=== PATIENT | male | born 1970 | race Caucasian/White ===

== ENCOUNTER 2018-08-10 01:03 | Observation (INO) | payer SELFPAY ==
[2018-08-10] MEDS ORDERED: Sodium Chloride 0.9% 1,000 ML IV STA ×2 (02:35→05:03)
[2018-08-10 02:41] LABS: HEMOGLOBIN 15.4 g/dL (12.0-18.0); MEAN CELL VOLUME 89.3 fl (80.0-94.0); MEAN CORPUSCULAR HEMOGLOBIN 30.9 pg (27.0-31.0); MEAN CORPUSCULAR HGB CONC 34.7 g/dL (33.0-37.0); RBC 4.98 Mil/uL (4.40-5.90); RED CELL DISTRIBUTION WIDTH 12.8 % (11.5-14.5); WHITE BLOOD COUNT 8.6 K/uL (4.8-10.8)
[2018-08-10 02:48] LABS: BLOOD UREA NITROGEN 17 mg/dl (9-20); CALCIUM 9.3 mg/dL (8.4-10.2); GFR NON-AFRICAN AMERICAN > 60
--- NOTE | 2018-08-10 03:29 | ED PDOC ---
Syncope/Near Syncope/Dizziness Time Seen by Provider: 08/10/18 01:33 Chief Complaint (Nursing): Dizziness/Lightheaded Chief Complaint (Provider): Dizziness/Lightheaded History Per: Patient History/Exam Limitations: no limitations Onset/Duration Of Symptoms: Days (x1) Additional Complaint(s): 13/ Patient is a 48 y/o male visiting from [facility] with no past medical history who presents to the ED complaining of dizziness. Patient states that since yesterday he has been feeling dizzy when he changes from a lying down to standing position. He states he feels as though the room is spinning and feels like he is going to fall down. He also states he feels nauseous. He denies any headache, vision changes, chest pain, shortness of breath, abdominal pain. Patient states that when he is lying still he feels better. Past Medical History Reviewed: Historical Data, Nursing Documentation, Vital Signs Vital Signs: Last Vital Signs Temp 98.0 F 08/10/18 01:15 Pulse 99 H 08/10/18 01:15 Resp 16 08/10/18 01:15 BP 171/85 H 08/10/18 01:15 Pulse Ox 97 08/10/18 01:15 - Medical History PMH: No Chronic Diseases - Surgical History Surgical History: No Surg Hx - Family History Family History: States: Unknown Family Hx - Home Medications Home Medications: Ambulatory Orders Medication Instructions Recorded Meclizine [Meclizine*] 25 mg PO Q6 #30 tab 08/10/18 - Allergies Allergies/Adverse Reactions: Allergies Allergy/AdvReac Type Severity Reaction Status Date / Time No Known Allergies Allergy Verified 08/10/18 01:23 Review of Systems ROS Statement: Except As Marked, All Systems Reviewed And Found Negative Eyes: Negative for: Vision Change Cardiovascular: Negative for: Chest Pain Respiratory: Negative for: Shortness of Breath Gastrointestinal: Positive for: Nausea. Negative for: Abdominal Pain Neurological: Positive for: Dizziness Physical Exam - Reviewed Nursing Documentation Reviewed: Yes Vital Signs Reviewed: Yes - Physical Exam Appears: Positive for: No Acute Distress (morbidly obese) Head Exam: Positive for: ATRAUMATIC, NORMAL INSPECTION, NORMOCEPHALIC Skin: Positive for: Normal Color, Warm, DRY Eye Exam: Positive for: EOMI, Normal appearance, PERRL ENT: Positive for: Normal ENT Inspection Neck: Positive for: Normal, Painless ROM Cardiovascular/Chest: Positive for: Regular Rate, Rhythm. Negative for: Murmur Respiratory: Positive for: Normal Breath Sounds. Negative for: Respiratory Distress Gastrointestinal/Abdominal: Positive for: Normal Exam, Soft. Negative for: Tenderness Back: Positive for: Normal Inspection Extremity: Positive for: Normal ROM. 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 Negative for: Motor/Sensory Deficits - Laboratory Results Result Diagrams: 08/10/18 01:55 08/10/18 01:55 - ECG O2 Sat by Pulse Oximetry: 97 (RA) Pulse Ox Interpretation: Normal Medical Decision Making Medical Decision Making: Time: 01:51 A/P: 48 y/o with dizziness likely indicativ of peripheral vertigo. Will rule out other etiology such as electrolyte or cardiac * CT Head * labs * Meclizine 50 mg [address] up in [address] Zofran 4mg IV ordered and more meclizine 400 CT SCAN OF THE BRAIN WITHOUT IV CONTRAST CLINICAL INDICATION: Dizziness. TECHNIQUE: Axial and reformatted sagittal and coronal images of the brain obtained without IV contrast administration. Normal size of the ventricles and extra-axial spaces for the patient's age. Normal white matter tracts of the supratentorial brain. Normal basal ganglia and thalami. Normal brainstem. Normal cerebellum. There is no demonstrated extra-axial, intraparenchymal, or intraventricular hemorrhage. There are no findings of an acute ischemic infarction. Normal calvarium. There is no demonstrated fracture. Normal soft tissue structures. Mild chronic mucosal inflammatory changes of the sphenoid sinuses and ethmoid air cells. Normal remaining visualized paranasal sinuses. IMPRESSION: Normal unenhanced CT scan of the brain. Chronic sinusitis. Patient still states he's just as dizzy as he was before despite medications Will admit to hospital for MRI and neurology consult Dr. Dwight sauceda -- Scribe Attestation: Documented by Nikko Wade, acting as a scribe for Ramy Hernandez MD. Provider Scribe Attestation: All medical record entries made by the Scribe were at my direction and personally dictated by me. I have reviewed the chart and agree that the record accurately reflects my personal performance of the history, physical exam, medical decision making, and the department course for this patient. I have also personally directed, reviewed, and agree with the discharge instructions and disposition. Disposition - Clinical Impression Clinical Impression: Vertigo, Dizziness - Disposition Disposition Time: 05:00 Condition: IMPROVED
--- NOTE | 2018-08-10 06:09 | CP.PCM.HP ---
<Wesley Pires - Last Filed: 08/10/18 06:34> History of Present Illness - History of Present Illness History of Present Illness: A 48 yo male no significant PMH present to ED due to dizziness that started yesterday morning. Patient report it started spontaneously after he woke up. Patient report the symptoms are reproducible every time he move his head B/L or change from lying to sitting position. He state he feel the room is spinning, and start seeing blurry, he denies sounds, or hearing change. Patient state this is the first time that have happened, and since yesterday it have been persistent, he did not have nausea or vomit, except when he got to the ER, otherwise his only symptom was the dizziness. Patient denies having recent fever, chills, recent infection, LOC or trauma. Patient report this is first time that have happened to him Patient came to [facility] for a vacation from [facility], and have been here for past 2 weeks. Patient denies any headache, chest pain, shortness of breath, abdominal pain. Patient states that when he is lying still he feels better. Allergy None Medication: anti acid PMH none PSH none Social: chronic smoker, denies drink or drug use ED course Vitals: Temp 98, Pulse 99, RR 16, Bp 171/85 ox 97 PE: WNL no neurological deficit CBC and CMP WNL except for glucose of 164 CT Scan Normal EKG no St or t changes Patient was placed on IV fluid and Meclizine Due patient unresolved dizziness, he will be admitted under observation to telemetry floor for further evaluation. Present on Admission - Present on Admission Any Indicators Present on Admission: No Review of Systems - Review of Systems Systems not reviewed;Unavailable: Acuity of Condition - Constitutional Constitutional: As Per HPI. absent: Chills, Fever, Frequent Falls - EENT Eyes: absent: Blurred Vision Ears: Dizziness. absent: Decreased Hearing, Ear Discharge, Ear Pain, Tinnitus - Cardiovascular Cardiovascular: absent: Chest Pain, Chest Pain at Rest, Diaphoresis, Dyspnea, Palpitations - Respiratory Respiratory: absent: Cough, Dyspnea, Dyspnea on Exertion - Gastrointestinal Gastrointestinal: absent: Abdominal Pain, Change in Bowel Habits, Change in Stool Character - Musculoskeletal Musculoskeletal: absent: Back Pain - Neurological Neurological: Dizziness, Vertigo. absent: Abnormal Gait, Numbness, Focal [place], Headaches, Tingling, Weakness Past Patient History - Past Social History Smoking Status: Never Smoked - PSYCHIATRIC Hx Substance Use: No - SURGICAL HISTORY Hx Surgeries: No - ANESTHESIA Hx Anesthesia: No Meds Home Medications: Home Medication List Medication Instructions Recorded Confirmed Type Meclizine [Meclizine*] 25 mg PO Q6 #30 tab 08/10/18 Rx Allergies/Adverse Reactions: Allergies Allergy/AdvReac Type Severity Reaction Status Date / Time No Known Allergies Allergy Verified 08/10/18 01:23 Physical Exam - Constitutional Appears: Well, Non-toxic, No Acute Distress - Head Exam Head Exam: ATRAUMATIC, NORMAL INSPECTION, NORMOCEPHALIC - Eye Exam Eye Exam: EOMI, Normal appearance, PERRL Pupil Exam: NORMAL ACCOMODATION, PERRL Additional comments: Positive horizontal Nystagmus B/L - ENT Exam ENT Exam: Mucous Membranes Moist, Normal Exam - Neck Exam Neck exam: Positive for: Normal Inspection - Respiratory Exam Respiratory Exam: Rales, NORMAL BREATHING PATTERN - Cardiovascular Exam Cardiovascular Exam: REGULAR RHYTHM, +S1, +S2 - GI/Abdominal Exam GI & Abdominal Exam: Normal Bowel Sounds, Soft. absent: Pulsatile Mass - Extremities Exam Extremities exam: Positive for: normal inspection - Back Exam Back exam: NORMAL INSPECTION. absent: CVA tenderness (L), CVA tenderness (R) - Neurological Exam Neurological exam: Alert, CN II-XII Intact, Normal Gait, Oriented x3 Additional comments: No weakness noted on all extremities - Psychiatric Exam Psychiatric exam: Normal Affect, Normal Mood - Skin Skin Exam: Dry, Intact, Normal Color, Warm - Additional Findings Additional findings: Orthostatic hypotension negative Results - Vital Signs Recent Vital Signs: Last Vital Signs Temp 98.3 F 08/10/18 04:01 Pulse 89 08/10/18 04:01 Resp 18 08/10/18 04:01 BP 146/73 08/10/18 04:01 Pulse Ox 97 08/10/18 05:52 - Labs Result Diagrams: 08/10/18 01:55 08/10/18 01:55 Labs: Laboratory Results - last 24 hr 08/10/18 08/10/18 01:55 01:55 WBC 8.6 RBC 4.98 Hgb 15.4 Hct 44.4 MCV 89.3 MCH 30.9 MCHC 34.7 RDW 12.8 Plt Count 167 Sodium 141 Potassium 4.2 Chloride 107 Carbon Dioxide 24 Anion Gap 14 BUN 17 Creatinine 1.0 Est GFR ( Amer) > 60 Est GFR (Non-Af Amer) > 60 Random Glucose 164 H Calcium 9.3 Assessment & Plan - Assessment and Plan (Free Text) Assessment: 48 yo male with no pmh presented to ED due to dizziness, will be admitted under observation to telemetry floor for further evaluation. Patient still complain of dizziness Vitals WNL except for BP 171/85 Ct head normal EKG No St changes CBC CMB WNL except for glucose 165 PE: WNL no neurology deficit Plan Continue Meclizine 25 Q6h PRN F/U MRI F/U Neuro consult F/U Troponin and LFT F/U Lipid panel and Hemoglobin A1C Neuro check Q4h DVT Prophylaxis SCD for now, Hold of Lovenox <Adi Quintanilla - Last Filed: 08/10/18 09:35> Results - Vital Signs Recent Vital Signs: Last Vital Signs Temp 98.1 F 08/10/18 08:04 Pulse 90 08/10/18 08:04 Resp 20 08/10/18 08:04 BP 158/96 H 08/10/18 08:04 Pulse Ox 96 08/10/18 08:04 - Labs Result Diagrams: 08/10/18 01:55 08/10/18 01:55 Labs: Laboratory Results - last 24 hr 08/10/18 08/10/18 08/10/18 01:55 01:55 05:44 WBC 8.6 RBC 4.98 Hgb 15.4 Hct 44.4 MCV 89.3 MCH 30.9 MCHC 34.7 RDW 12.8 Plt Count 167 Sodium 141 Potassium 4.2 Chloride 107 Carbon Dioxide 24 Anion Gap 14 BUN 17 Creatinine 1.0 Est GFR ( Amer) > 60 Est GFR (Non-Af Amer) > 60 Random Glucose 164 H Calcium 9.3 Total Bilirubin Direct Bilirubin AST ALT Alkaline Phosphatase Troponin I < 0.0120 Total Protein Albumin Globulin Albumin/Globulin Ratio Triglycerides Cholesterol LDL Cholesterol Direct HDL Cholesterol 08/10/18 06:10 WBC RBC Hgb Hct MCV MCH MCHC RDW Plt Count Sodium Potassium Chloride Carbon Dioxide Anion Gap BUN Creatinine Est GFR ( Amer) Est GFR (Non-Af Amer) Random Glucose Calcium Total Bilirubin 0.2 Direct Bilirubin 0.2 AST 28 ALT 45 Alkaline Phosphatase 67 Troponin I Total Protein 7.0 Albumin 4.1 Globulin 2.9 Albumin/Globulin Ratio 1.4 Triglycerides 224 H Cholesterol 197 LDL Cholesterol Direct 115 HDL Cholesterol 30 Attending/Attestation - Attestation I have personally seen and examined this patient.: Yes I have fully participated in the care of the patient.: Yes I have reviewed all pertinent clinical information: Yes Notes (Text): 08/10/18 09:23 I saw, examined and discussed this patient with Dr Miles. I agree with the assessment and plan outlined. This is a 48 years old male from [facility] with no significant past medical hx, comes with 2 days of dizziness, worsening on standing from a lying position or moving the head. No headache, hearing impairment,tinnitus nor upper respiratory symptoms, SOB, chest Pain diarrhea, nor urinary symptoms. Blood Pressure in ED was 171/86mmHg with normal Head CT. We will place the patient for observation with cardiac monitoring, Neuro checks MRI of the brain and consult Neurology for the vertigo to r/o cerebellar CVA. Treat elevated Blood Pressure, continue with as needed Meclezine. Adi Quintanilla MD
[2018-08-10 06:54] LABS: ALB/GLOB RATIO 1.4 (1.0-2.1); ALBUMIN 4.1 g/dL (3.5-5.0); BILIRUBIN,DIRECT 0.2 mg/ml (0.0-0.4)
[2018-08-10] MEDS ORDERED: Enoxaparin 40 mg Syringe SC SCH (09:00)
--- NOTE | 2018-08-10 10:06 | CT ---
Date of service: 08/10/2018 PROCEDURE: CT HEAD WITHOUT CONTRAST. HISTORY: dizziness COMPARISON: None available. TECHNIQUE: Axial computed tomography images were obtained through the head/brain without intravenous contrast. Radiation dose: Total exam DLP = 796.51 mGy-cm. This CT exam was performed using one or more of the following dose reduction techniques: Automated exposure control, adjustment of the mA and/or kV according to patient size, and/or use of iterative reconstruction technique. FINDINGS: HEMORRHAGE: No intracranial hemorrhage. BRAIN: Normal serrano-white matter differentiation and density are appreciated throughout the cerebrum and cerebellum with the brainstem appearing unremarkable as well. There is no mass effect. There is no suspicious extra-axial fluid collection and the midline brain anatomy appears diffusely unremarkable. VENTRICLES: Unremarkable. No hydrocephalus. CALVARIUM: Unremarkable. PARANASAL SINUSES: Small polyps or retention cysts are seen at the bilateral sphenoid sinuses. MASTOID AIR CELLS: Unremarkable as visualized. No inflammatory changes. OTHER FINDINGS: None. IMPRESSION: Unremarkable unenhanced head CT. Incidental bilateral sphenoid polyps or cysts. Concordant preliminary report from Eduardo, 08/10/2018, 2:44 a.m..
[2018-08-10 10:17] VITALS: BMI 42.8
[2018-08-10] MEDS ORDERED: Sodium Chloride 0.9% 50 ML IV ONE (12:32)
[2018-08-10] MEDS ORDERED: Iodixanol 320 MG/ML 100 ML BOTTLE IV ONE (12:32)
--- NOTE | 2018-08-10 17:11 | CT ---
Date of service: 08/10/2018 PROCEDURE: CT Angiography of the Brain and Neck. HISTORY: intractable dizziness, r/o vbi, lvo COMPARISON: Unenhanced head CT 08/10/2018. TECHNIQUE: CT angiography of the head and neck was performed following intravenous contrast administration. Coronal and sagittal maximum intensity projection reformatted images were generated. Contrast Dose: Visipaque 320, 100 cc Radiation dose: Total exam DLP = 577.45 mGy-cm. This CT exam was performed using one or more of the following dose reduction techniques: Automated exposure control, adjustment of the mA and/or kV according to patient size, and/or use of iterative reconstruction technique. FINDINGS: INTERNAL CEREBRAL ARTERIES: Unremarkable. The skull base, petrous, cavernous and supraclinoid segments are bilaterally widely patent. ANTERIOR CEREBRAL ARTERIES: Hypoplastic right A1 SAULO segment. Bilateral A2 and left A1 segments are widely patent. Smaller distal branches unremarkable, as visualized. MIDDLE CEREBRAL ARTERIES: Unremarkable. M1 and M2 segments are widely patent. Perisylvian branches grossly symmetric. POSTERIOR CIRCULATION: Basilar Artery: Unremarkable. Distal Vertebral Arteries: Left dominant vertebrobasilar circulation. Posterior Cerebral Arteries: Mild bilateral INSURANCE MARKETING SPECIALIST hypoplasia. Posterior Inferior Cerebellar Arteries: Unremarkable. NECK CTA: Aortic Arch: Normal three vessel arch identified. Common Carotid arteries: The bilateral common carotid appear widely patent from their origins to their bifurcations with no significant stenosis appreciated. No evidence to suggest common carotid artery dissection. Internal Carotid arteries: No significant stenosis is appreciated throughout the cervical internal carotid artery segments bilaterally and there is no evidence of dissection either. External Carotid arteries: Appear unremarkable bilaterally. Vertebral arteries: The bilateral vertebral arteries appear patent from their origins to their distal cervical segments. Mild right vertebral artery hypoplasia is identified. No significant stenosis or definite pattern of dissection. Limitations: Artifact from the patient's body habitus obscures imaging through the proximal neck vasculature appear ANEURYSM/ VASCULAR MALFORMATIONS: None. OTHER FINDINGS: None. IMPRESSION: Hypoplastic left A1 SAULO segment and bilateral P1 INSURANCE MARKETING SPECIALIST segments favored over potential spasm or vasculitis related stenosis. Bilateral posterior communicating arteries are felt to be present in the basilar artery appears widely patent. Further characterization by digital subtraction angiography can be performed if clinically warranted. No definitive large branch occlusion appreciable. The bilateral common and internal carotid arteries appear patent. Note, artifact from body habitus obscures proximal neck vasculature. Hypoplastic right vertebral artery.
--- NOTE | 2018-08-10 17:27 | CARD ---
APPROVED REPORT Date of service: 08/10/2018 EKG Measurement Heart [id number] <Conclusion> Normal sinus rhythm Normal ECG
--- NOTE | 2018-08-11 09:49 | CP.PCM.PN ---
<Melissa Juarez - Last Filed: 08/11/18 12:24> Subjective - Date & Time of Evaluation Date of Evaluation: 08/11/18 Time of Evaluation: 09:48 - Subjective Subjective: 48 yo male no significant PMH seen and evaluated at bedside for dizzineess. Patient states it started two days ago and still present everytime he gets up to use the bathroom. Patient describes it as the room starts to spin everytime he is stnading. Denies blurry vision, or any sounds in his ear. Denies pain in the body. Denies acute overnight events. NAD AAOx3. Patient denies having recent fever, chills, recent infection, LOC or trauma. Patient report this is first time that have happened to him Patient denies any headache, chest pain, shortness of breath, abdominal pain. Patient states that when he is lying still he feels slightly better Objective - Vital Signs/Intake and Output Vital Signs (last 24 hours): Temp Pulse Resp BP Pulse Ox 97.5 F L 69 18 120/84 96 08/11/18 09:00 08/11/18 09:00 08/11/18 09:00 08/11/18 09:00 08/11/18 09:00 - Medications Medications: Current Medications Meclizine HCl (Antivert) 25 mg PO Q6H PRN PRN Reason: dizzy Meclizine HCl (Antivert) 25 mg PO BID LUIS Last Admin: 08/11/18 09:19 Dose: 25 mg Ondansetron HCl (Zofran Inj) 4 mg IVP Q6 PRN PRN Reason: Nausea/Vomiting Last Admin: 08/10/18 09:31 Dose: 4 mg - Labs Labs: 08/10/18 01:55 08/10/18 01:55 - Constitutional Appears: Well, Non-toxic, No Acute Distress - Head Exam Head Exam: ATRAUMATIC, NORMOCEPHALIC - Eye Exam Eye Exam: Normal appearance Pupil Exam: NORMAL ACCOMODATION - ENT Exam ENT Exam: Mucous Membranes Moist - Respiratory Exam Respiratory Exam: Clear to Ausculation Bilateral, NORMAL BREATHING PATTERN - Cardiovascular Exam Cardiovascular Exam: REGULAR RHYTHM, +S1, +S2 - Neurological Exam Neurological Exam: Alert, Awake, Oriented x3 Assessment and Plan - Assessment and Plan (Free Text) Assessment: 48 yo male with no pmh presented to ED due to dizziness, will be admitted under observation to telemetry floor for further evaluation. Neuro consult ordered and PT on board. Meclizine 25 Q6 PRN started. Plan: Dizziness: Vitals WNL Ct head normal Vertigo EKG No St changes CBC CMB WNL except for glucose 165 PE: WNL no neurology deficit Continue Meclizine 25 Q6h PRN F/U MRI: pending Neuro consult: Per Dr. Domingo, If Cta head and neck are normal, then he may be discharged with vestibular therapy. Troponin and LFT- WNL Lipid panel and Hemoglobin A1C: Triglycerides 224 Hga1c- 6.2 Neuro check Q4h PT on board for vestibular evaluation DVT Prophylaxis SCD for now, Hold off Lovenox <Loan Newman - Last Filed: 08/11/18 15:31> Objective - Vital Signs/Intake and Output Vital Signs (last 24 hours): Temp Pulse Resp BP Pulse Ox 97.4 F L 83 18 147/80 95 08/11/18 13:00 08/11/18 14:14 08/11/18 13:00 08/11/18 13:00 08/11/18 14:14 - Medications Medications: Current Medications Enoxaparin Sodium (Lovenox) 40 mg SC DAILY LUIS; Protocol Furosemide (Lasix) 20 mg IVP DAILY LUIS Meclizine HCl (Antivert) 25 mg PO Q6H PRN PRN Reason: dizzy Meclizine HCl (Antivert) 25 mg PO BID LUIS Last Admin: 08/11/18 09:19 Dose: 25 mg Ondansetron HCl (Zofran Inj) 4 mg IVP Q6 PRN PRN Reason: Nausea/Vomiting Last Admin: 08/10/18 09:31 Dose: 4 mg - Labs Labs: 08/10/18 01:55 08/10/18 01:55 Attending/Attestation - Attestation I have personally seen and examined this patient.: Yes I have fully participated in the care of the patient.: Yes I have reviewed all pertinent clinical information, including history, physical exam and plan: Yes Notes (Text): Vertigo r/o BPV, r/o Meniere's - PT consult for Vestibular Rehab - cont Meclizine - Zofran prn - will give dose of Lasix - Klonopin 0.5 mg bid - Cleared by Neuro for d/c- CT of head , CTA of head /neck : neg
--- NOTE | 2018-08-11 11:42 | CP.PCM.CON ---
History of Present Illness - History of Present Illness History of Present Illness: Neurology consult called By DR. Ramy Ojeda, ER attending. Consult dictated and pending final janitor cleaner. In brief, Mr. Harrison is a 48 yr old male presenting with refractory vertigo for several days and has a history of spells similar in nature. Plan: 1. MRI Brain 2. CTA head and neck. His weight may prevent him from obtaining an MRI brain which will have to be done on an open MRI outpatient basis. If Cta head and neck are normal, then he may be discharged with vestibular therapy. Thank you Dr. Jose L Potts Neurology Past Patient History - Past Medical History & Family History Past Medical History?: Yes - Past Social History Smoking Status: Current Some Days Smoker - CARDIAC Hx Cardiac Disorders: No - PULMONARY Hx Respiratory Disorders: No - NEUROLOGICAL Hx Neurological Disorder: No - HEENT Hx HEENT Problems: No - RENAL Hx Chronic Kidney Disease: No - ENDOCRINE/METABOLIC Hx Endocrine Disorders: No - HEMATOLOGICAL/ONCOLOGICAL Hx Blood Disorders: No - INTEGUMENTARY Hx Dermatological Problems: No - MUSCULOSKELETAL/RHEUMATOLOGICAL Hx Musculoskeletal Disorders: No Hx Falls: No - GASTROINTESTINAL Hx Gastrointestinal Disorders: Yes Other/Comment: had abdominal surgery - GENITOURINARY/GYNECOLOGICAL Hx Genitourinary Disorders: No - PSYCHIATRIC Hx Psychophysiologic Disorder: No Hx Substance Use: No - SURGICAL HISTORY Hx Surgeries: Yes Other/Comment: had abdominal surgery - ANESTHESIA Hx Anesthesia: No Hx Anesthesia Reactions: No Hx Malignant Hyperthermia: No Has any member of the family had a problem w/ anesthesia?: No Meds Home Medications: Home Medication List Medication Instructions Recorded Confirmed Type Meclizine [Meclizine*] 25 mg PO Q6 #30 tab 08/10/18 Rx Allergies/Adverse Reactions: Allergies Allergy/AdvReac Type Severity Reaction Status Date / Time No Known Allergies Allergy Verified 08/10/18 01:23 - Medications Medications: Current Medications Meclizine HCl (Antivert) 25 mg PO Q6H PRN PRN Reason: dizzy Meclizine HCl (Antivert) 25 mg PO BID LUIS Last Admin: 08/11/18 09:19 Dose: 25 mg Ondansetron HCl (Zofran Inj) 4 mg IVP Q6 PRN PRN Reason: Nausea/Vomiting Last Admin: 08/10/18 09:31 Dose: 4 mg Results - Vital Signs Recent Vital Signs: Last Vital Signs Temp 97.5 F L 08/11/18 09:00 Pulse 82 08/11/18 09:00 Resp 18 08/11/18 09:00 BP 120/84 08/11/18 09:00 Pulse Ox 96 08/11/18 09:00 - Labs Result Diagrams: 08/10/18 01:55 08/10/18 01:55 Labs: Laboratory Results - last 24 hr 08/10/18 05:00 Hemoglobin A1c 6.2
[2018-08-11] MEDS: Enoxaparin 40 mg Syringe SC SCH (16:43)
[2018-08-12 00:28] VITALS: RESP 18
[2018-08-12 08:27] VITALS: BP 131/88
[2018-08-12] MEDS: Enoxaparin 40 mg Syringe SC SCH (09:03)
--- NOTE | 2018-08-12 09:49 | CP.PCM.DIS ---
<Melissa Juarez - Last Filed: 08/12/18 10:38> Provider - Provider Date of Admission: 08/10/18 05:04 Attending physician: Adi Quintanilla Consults: 08/10/18 05:05 Neurology Consult Stat Comment: Consulting Provider: Koby Domingo Consulting Physician: Koby Domingo Reason for Consult: intractable dizziness Time Spent in preparation of Discharge (in minutes): 30 Diagnosis - Discharge Diagnosis (1) Dizziness Status: Acute Hospital Course - Lab Results Lab Results: Most Recent Lab Values WBC 8.6 K/uL (4.8-10.8) 08/10/18 01:55 RBC 4.98 Mil/uL (4.40-5.90) 08/10/18 01:55 Hgb 15.4 g/dL (12.0-18.0) 08/10/18 01:55 Hct 44.4 % (35.0-51.0) 08/10/18 01:55 MCV 89.3 fl (80.0-94.0) 08/10/18 01:55 MCH 30.9 pg (27.0-31.0) 08/10/18 01:55 MCHC 34.7 g/dL (33.0-37.0) 08/10/18 01:55 RDW 12.8 % (11.5-14.5) 08/10/18 01:55 Plt Count 167 K/uL (130-400) 08/10/18 01:55 Sodium 141 mmol/l (132-148) 08/10/18 01:55 Potassium 4.2 MMOL/L (3.6-5.0) 08/10/18 01:55 Chloride 107 mmol/L (98-107) 08/10/18 01:55 Carbon Dioxide 24 mmol/L (22-30) 08/10/18 01:55 Anion Gap 14 (10-20) 08/10/18 01:55 BUN 17 mg/dl (9-20) 08/10/18 01:55 Creatinine 1.0 mg/dl (0.8-1.5) 08/10/18 01:55 Est GFR ( Amer) > 60 08/10/18 01:55 Est GFR (Non-Af Amer) > 60 08/10/18 01:55 Random Glucose 164 mg/dL (75-110) H 08/10/18 01:55 Hemoglobin A1c 6.2 % (4.2-6.5) 08/10/18 05:00 Calcium 9.3 mg/dL (8.4-10.2) 08/10/18 01:55 Total Bilirubin 0.2 mg/dl (0.2-1.3) 08/10/18 06:10 Direct Bilirubin 0.2 mg/ml (0.0-0.4) 08/10/18 06:10 AST 28 U/L (17-59) 08/10/18 06:10 ALT 45 U/L (21-72) 08/10/18 06:10 Alkaline Phosphatase 67 U/L (38-126) 08/10/18 06:10 Troponin I < 0.0120 ng/mL (0.00-0.120) 08/10/18 05:44 Total Protein 7.0 G/DL (6.3-8.2) 08/10/18 06:10 Albumin 4.1 g/dL (3.5-5.0) 08/10/18 06:10 Globulin 2.9 gm/dL (2.2-3.9) 08/10/18 06:10 Albumin/Globulin Ratio 1.4 (1.0-2.1) 08/10/18 06:10 Triglycerides 224 mg/DL (0-149) H 08/10/18 06:10 Cholesterol 197 mg/dL (0-199) 08/10/18 06:10 LDL Cholesterol Direct 115 mg/dL (0-129) 08/10/18 06:10 HDL Cholesterol 30 MG/DL (30-70) 08/10/18 06:10 - Hospital Course Hospital Course: 48 yo male with no pmh presented to ED due to dizziness and was admitted under observation to telemetry floor for further evaluation. Meclizine 25 Q^ PRN started. CT head normal. EKG no St changes. Patient needs an Open MRI of the brain because of patients weight. Neuro consult ordered with Domingo( recommended discharge with verstibular therapy) and PT on board with vestibular therapy. Patient was getting klonopin, lasic and meclizine as inpatient. troponin/lft/lipid panel hga1c WNL. Continue outpatient vestibular rehab, and prescription for brain MRI without contrast given. Meclizine 25 TID x 30 pills rx. Patient advised to follow up outpatient. - Date & Time of H&P Date of H&P: 08/12/18 Time of H&P: 09:49 Discharge Exam - Head Exam Head Exam: ATRAUMATIC, NORMOCEPHALIC - Eye Exam Eye Exam: Normal appearance Pupil Exam: NORMAL ACCOMODATION - ENT Exam ENT Exam: Mucous Membranes Moist, Normal Exam, Normal External Ear Exam - Respiratory Exam Respiratory Exam: NORMAL BREATHING PATTERN - Cardiovascular Exam Cardiovascular Exam: REGULAR RHYTHM, +S1, +S2 - GI/Abdominal Exam GI & Abdominal Exam: Normal Bowel Sounds, Unremarkable - Extremities Exam Extremities exam: normal inspection - Neurological Exam Neurological exam: Alert, Oriented x3 - Psychiatric Exam Psychiatric exam: Normal Affect - Skin Skin Exam: Normal Color Discharge Plan - Discharge Medications Prescriptions: Meclizine [Meclizine*] 25 mg PO Q6 #30 tab - Follow Up Plan Condition: IMPROVED Disposition: HOME/ ROUTINE Instructions: Vertigo (a Type of Dizziness) Additional Instructions: [facility] Open MRI as outpt Vestibular PT 2-3x per week Referrals: Koby Domingo MD [Medical Doctor] - [facility] [Outside] Clinical Quality Measures - CQM - Stroke Antithrombotic Prescribed: Yes <Loan Newman - Last Filed: 08/12/18 13:20> Provider - Provider Date of Admission: 08/10/18 05:04 Attending physician: Adi Quintanilla Consults: 08/10/18 05:05 Neurology Consult Stat Comment: Consulting Provider: Koby Domingo Consulting Physician: Koby Domingo Reason for Consult: intractable dizziness Hospital Course - Lab Results Lab Results: Most Recent Lab Values WBC 8.6 K/uL (4.8-10.8) 08/10/18 01:55 RBC 4.98 Mil/uL (4.40-5.90) 08/10/18 01:55 Hgb 15.4 g/dL (12.0-18.0) 08/10/18 01:55 Hct 44.4 % (35.0-51.0) 08/10/18 01:55 MCV 89.3 fl (80.0-94.0) 08/10/18 01:55 MCH 30.9 pg (27.0-31.0) 08/10/18 01:55 MCHC 34.7 g/dL (33.0-37.0) 08/10/18 01:55 RDW 12.8 % (11.5-14.5) 08/10/18 01:55 Plt Count 167 K/uL (130-400) 08/10/18 01:55 Sodium 141 mmol/l (132-148) 08/10/18 01:55 Potassium 4.2 MMOL/L (3.6-5.0) 08/10/18 01:55 Chloride 107 mmol/L (98-107) 08/10/18 01:55 Carbon Dioxide 24 mmol/L (22-30) 08/10/18 01:55 Anion Gap 14 (10-20) 08/10/18 01:55 BUN 17 mg/dl (9-20) 08/10/18 01:55 Creatinine 1.0 mg/dl (0.8-1.5) 08/10/18 01:55 Est GFR ( Amer) > 60 08/10/18 01:55 Est GFR (Non-Af Amer) > 60 08/10/18 01:55 Random Glucose 164 mg/dL (75-110) H 08/10/18 01:55 Hemoglobin A1c 6.2 % (4.2-6.5) 08/10/18 05:00 Calcium 9.3 mg/dL (8.4-10.2) 08/10/18 01:55 Total Bilirubin 0.2 mg/dl (0.2-1.3) 08/10/18 06:10 Direct Bilirubin 0.2 mg/ml (0.0-0.4) 08/10/18 06:10 AST 28 U/L (17-59) 08/10/18 06:10 ALT 45 U/L (21-72) 08/10/18 06:10 Alkaline Phosphatase 67 U/L (38-126) 08/10/18 06:10 Troponin I < 0.0120 ng/mL (0.00-0.120) 08/10/18 05:44 Total Protein 7.0 G/DL (6.3-8.2) 08/10/18 06:10 Albumin 4.1 g/dL (3.5-5.0) 08/10/18 06:10 Globulin 2.9 gm/dL (2.2-3.9) 08/10/18 06:10 Albumin/Globulin Ratio 1.4 (1.0-2.1) 08/10/18 06:10 Triglycerides 224 mg/DL (0-149) H 08/10/18 06:10 Cholesterol 197 mg/dL (0-199) 08/10/18 06:10 LDL Cholesterol Direct 115 mg/dL (0-129) 08/10/18 06:10 HDL Cholesterol 30 MG/DL (30-70) 08/10/18 06:10 Attending/Attestation - Attestation I have personally seen and examined this patient.: Yes I have fully participated in the care of the patient.: Yes I have reviewed all pertinent clinical information, including history, physical exam and plan: Yes Notes (Text): Vertigo unclear if Benign Positional Vertigo - PT consulted for Vestibular Rehab- rec to continue outpt Rehab - cont Meclizine - Cleared by Neuro for d/c- CT of head , CTA of head /neck : neg - Open MRI as outpt to complete work up as rec by Neuro - Pt's dizziness improved - Advised to ambulate only with assistance for now
[2018-08-12 12:18] VITALS: PULSE 88; TEMP 97.5; O2SAT 95
== END 2018-08-12 14:02 | disposition home or self-care (01) ==
LOC: H.ER 01:03 → UNDOADMOB 05:04 → H.ERHOLD 05:04 → H.TEL 07:26
PROVIDERS: ADMIT Internal Medicine; ATTEND Internal Medicine
DX: R42 Dizziness and giddiness (principal); J32.9 Chronic sinusitis, unspecified; F17.200 Nicotine dependence, unspecified, uncomplicated
CPT/HCPCS: 36415; 70450; 70496; 70498; 80048; 80061; 80076; 83036; 84484; 85027; 93005; 96360; 96374; 97112; 97116; 97162; 99285; G8978; G8979; J1650; J1940; J2060; J2405; J7030; Q9967